=== PATIENT | female | born 1980 ===

== ENCOUNTER 2018-09-23 09:35 | Outpatient (CLI) | payer OTHER | END 2018-09-23 09:58 | disposition home or self-care (01) | LOC: MAMO-SONO 09:35 | DX: Z12.31 Encounter for screening mammogram for malignant neoplasm of breast (principal); N60.11 Diffuse cystic mastopathy of right breast; N60.12 Diffuse cystic mastopathy of left breast ==

== ENCOUNTER 2019-01-09 16:51 | Outpatient (CLI) | payer OTHER ==
[~2019-01-09] VITALS: Ht 182.9 cm; Wt 62.6 kg
== END 2019-01-09 17:10 | disposition home or self-care (01) ==
LOC: OFIC 805 16:51
DX: J34.2 Deviated nasal septum (principal); J31.0 Chronic rhinitis; H90.3 Sensorineural hearing loss, bilateral; H69.83 Other specified disorders of Eustachian tube, bilateral

== ENCOUNTER 2020-08-06 07:17 | Outpatient (CLI) | payer OTHER | END 2020-08-06 07:58 | disposition home or self-care (01) | LOC: TOM 07:17 | PROVIDERS: ATTEND Family Medicine | DX: K57.92 Diverticulitis of intestine, part unspecified, without perforation or abscess without bleeding (principal) ==

== ENCOUNTER 2021-01-11 15:08 | Outpatient (CLI) | payer OTHER | END 2021-01-11 15:27 | disposition home or self-care (01) | LOC: MAMO-SONO 15:08 | PROVIDERS: ATTEND Obstetrics & Gynecology | DX: Z12.31 Encounter for screening mammogram for malignant neoplasm of breast (principal); N60.01 Solitary cyst of right breast; N60.12 Diffuse cystic mastopathy of left breast; N60.11 Diffuse cystic mastopathy of right breast ==

== ENCOUNTER 2021-09-12 08:00 | Outpatient (CLI) | payer OTHER | END 2021-09-12 08:30 | disposition home or self-care (01) | LOC: PPH VACUNA 08:00 | PROVIDERS: ATTEND Emergency Medicine Pediatric Emergency Medicine | DX: Z23 Encounter for immunization (principal) ==

== ENCOUNTER → 2021-10-11 | Outpatient (CLI) | payer OTHER | END | disposition home or self-care (01) | LOC: PPH VACUNA 07:00 | PROVIDERS: ATTEND Emergency Medicine Pediatric Emergency Medicine | DX: Z23 Encounter for immunization (principal) ==

== ENCOUNTER 2023-03-27 14:57 | Outpatient (CLI) | payer OTHER | END 2023-03-27 15:11 | disposition home or self-care (01) | LOC: RAD 14:57 | PROVIDERS: ATTEND Physical Medicine & Rehabilitation | DX: J18.9 Pneumonia, unspecified organism (principal) ==

== ENCOUNTER 2025-02-13 07:07 | Outpatient (CLI) | payer OTHER | END 2025-02-13 07:16 | disposition home or self-care (01) | LOC: SONOGRAMA 07:07 | PROVIDERS: ATTEND Internal Medicine Gastroenterology | DX: E03.8 Other specified hypothyroidism (principal); R16.0 Hepatomegaly, not elsewhere classified ==